=== PATIENT | male | born 1990 | race African-American/Black ===

== ENCOUNTER 2021-04-28 09:50 | Emergency (ER) | payer SELFPAY ==
[~2021-04-28] VITALS: Ht 185.4 cm; Wt 116.3 kg
[2021-04-28] MEDS ORDERED: IV NORMAL SALINE 1,000ML 1,000 ML IV ONE (10:15)
--- NOTE | 2021-04-28 10:16 | PHYS DOC ---
Past History Past Medical History: No Pertinent History Past Surgical History: No Surgical History Smoking: Non-smoker Alcohol Use: None Drug Use: None Adult General Chief Complaint Chief Complaint: ABDOMINAL PAIN HPI HPI Patient is a 30-year-old presenting for abdominal pain. This is a new issue, states he has been at baseline health without any known trauma, fever, recent travel, sick contacts or concerning p.o. ingestion when he had severe epigastric abdominal pain that awoke him from sleep at 7 AM this morning. Nothing known makes better or worse. He has been diaphoretic since onset with ongoing nausea and several episodes of nonbloody nonbilious emesis. Also endorses looser st ools than usual. Has no abdominal surgical history, denies tobacco, alcohol or illicit drug use. Has history of being incarcerated with unknown hep C/HIV status. He does not have a primary care physician and takes no medications on a daily basis Review of Systems Review of Systems Fourteen body systems of review of systems have been reviewed. See HPI for pertinent positives and negative responses, other carlos all other systems are negative, non-pertinent or non-contributory Allergies Allergies Allergies Coded Allergies Type Severity Reaction Last Updated Verified No Known Drug Allergies 04/28/21 No Physical Exam Physical Exam Constitutional: Well developed, well nourished, no acute distress, non-toxic appearance. HENT: Normocephalic, atraumatic, bilateral external ears normal, oropharynx moist, no oral exudates, nose normal. Eyes: PERRLA, EOMI, conjunctiva normal, no discharge. Neck: Normal range of motion, no tenderness, supple, no stridor. Cardiovascular: Heart rate regular, sinus rhythm, no murmurs rubs or gallops Lungs & Thorax: Bilateral breath sounds clear to auscultation Abdomen: Bowel sounds normal, soft, no tenderness, no masses, no pulsatile masses. Nonsurgical abdomen, no peritoneal signs Skin: Warm, dry, no erythema, no rash. Back: No tenderness, no CVA tenderness. Extremities: No tenderness, no cyanosis, no clubbing, ROM intact, no edema. Neurologic: Alert and oriented X 3, grossly normal motor & sensory function, no focal deficits noted. Psychologic: Affect normal, judgement normal, mood normal. Current Patient Data Vital Signs Vital Signs Date Time Temp Pulse Resp B/P (MAP) Pulse Ox O2 Delivery O2 Flow Rate FiO2 04/28/21 10:12 97.5 72 16 133/100 (111) 98 Room Air Vital Signs Date Time Temp Pulse Resp B/P (MAP) Pulse Ox O2 Delivery O2 Flow Rate FiO2 04/28/21 10:12 97.5 72 16 133/100 (111) 98 Room Air Lab Results Laboratory Tests Test 04/28/21 10:20 04/28/21 11:55 White Blood Count 9.4 x10^3/uL Red Blood Count 6.01 x10^6/uL Hemoglobin 18.1 g/dL Hematocrit 52.6 % Mean Corpuscular Volume 88 fL Mean Corpuscular Hemoglobin 30 pg Mean Corpuscular Hemoglobin Concent 35 g/dL Red Cell Distribution Width 13.9 % Platelet Count 207 x10^3/uL Neutrophils (%) (Auto) 67 % Lymphocytes (%) (Auto) 23 % Monocytes (%) (Auto) 9 % Eosinophils (%) (Auto) 1 % Basophils (%) (Auto) 1 % Neutrophils # (Auto) 6.3 x10^3uL Lymphocytes # (Auto) 2.2 x10^3/uL Monocytes # (Auto) 0.8 x10^3/uL Eosinophils # (Auto) 0.1 x10^3/uL Basophils # (Auto) 0.1 x10^3/uL Sodium Level 143 mmol/L Potassium Level 3.6 mmol/L Chloride Level 106 mmol/L Carbon Dioxide Level 26 mmol/L Anion Gap 11 Blood Urea Nitrogen 11 mg/dL Creatinine 1.3 mg/dL Estimated GFR (Cockcroft-Gault) 77.9 BUN/Creatinine Ratio 8 Glucose Level 117 mg/dL Calcium Level 11.1 mg/dL Total Bilirubin 0.5 mg/dL Aspartate Amino Transf (AST/SGOT) 30 U/L Alanine Aminotransferase (ALT/SGPT) 25 U/L Alkaline Phosphatase 90 U/L Creatine Kinase 350 U/L Troponin I Quantitative < 0.017 ng/mL Total Protein 8.7 g/dL Albumin 4.8 g/dL Albumin/Globulin Ratio 1.2 Lipase 55 U/L Ethyl Alcohol Level < 10 mg/dL Urine Collection Type Unknown Urine Color Yellow Urine Clarity Clear Urine pH 7.0 Urine Specific Marshall 1.010 Urine Protein Trace Urine Glucose (UA) Neg mg/dL Urine Ketones (Stick) 40 mg/dL Urine Blood Neg Urine Nitrite Neg Urine Bilirubin Neg Urine Urobilinogen Dipstick 0.2 mg/dL Urine Leukocyte Esterase Neg Urine RBC Rare /HPF Urine WBC 5-10 /HPF Urine Squamous Epithelial Cells Occ /LPF Urine Bacteria Few /HPF Urine Mucus Slight /LPF Urine Opiates Screen Neg Urine Methadone Screen Neg Urine Barbiturates Neg Urine Phencyclidine Screen Neg Urine Amphetamine/Methamphetamine Neg Urine Benzodiazepines Screen Neg Urine Cocaine Screen Neg Urine Cannabinoids Screen Pos Urine Ethyl Alcohol Neg Current Medications Medications (Trade) Dose Ordered Sig/Julia Route PRN Reason Start Time Stop Time Status Last Admin Dose Admin Sodium Chloride 1,000 ml @ 1,000 mls/hr 1X ONCE IV 04/28/21 10:15 04/28/21 11:14 DC 04/28/21 10:26 Fentanyl Citrate (Fentanyl 2ml Vial) 75 mcg 1X ONCE IVP 04/28/21 10:30 04/28/21 10:31 DC 04/28/21 10:27 Iohexol (Omnipaque 300 Mg/ml) 75 ml 1X ONCE IV 04/28/21 10:30 04/28/21 10:31 DC 04/28/21 10:46 Ondansetron HCl (Zofran) 4 mg 1X ONCE IVP 04/28/21 11:30 04/28/21 11:31 DC 04/28/21 11:25 Ondansetron HCl (Zofran) 4 mg STK-MED ONCE .ROUTE 04/28/21 11:23 04/28/21 11:23 DC EKG EKG EKG ordered and interpreted by myself at 1029 hrs. as sinus rhythm at 64 bpm, unremarkable intervals, no axis deviation, T wave inversion noted in lead II, III, aVF, V5 and V6, no STEMI Radiology/Procedures Radiology/Procedures INDICATION: Reason: epigastric pain / Spl. Instructions: / History: . COMPARISON: None. TECHNIQUE: Axial CT images obtained through the abdomen and pelvis with contrast. One or more of the following individualized dose reduction techniques were utilized for this examination: 1. Automated exposure control; 2. Adjustment of the mA and/or kV according to patient size; 3. Use of iterative reconstruction technique. FINDINGS: There is some linear atelectasis at lung bases. Abdominal aorta is not aneurysmal. Partial visualization of right greater than left hydrocele. Small fat-containing umbilical hernia. No intrahepatic bile duct dilation. No peripancreatic fluid collection. Spleen is unremarkable. Urinary bladder is partially distended. No significant hydronephrosis. Small fat-containing umbilical hernia. No periappendiceal inflammatory changes. Degenerative changes the spine are identified. This includes facet hypertrophy as well as disc protrusions and osteophyte formation at vertebral body endplates. Bilateral pars defects at L4. Mild wedging of the T12 vertebral body. There is some prominence the wall of a portion of the colon but it is not very distended. IMPRESSION: * No evidence of bowel obstruction or appendicitis. * The colon is not distended but there is some mild prominence of the colonic wall. Could be from lack of distention but would correlate with symptoms to ensure that this is not from early colitis. Electronically signed by: Edy Hung MD (04/28/2021 11:23 AM) [id number] Heart Score C/O Chest Pain: No HEART Score for Chest Pain: HEART Score for Chest Pain Response (Comments) Value History Slighlty/Non-Suspicious 0 ECG Normal 0 Age < 45 0 Risk Factors No Risk Factors 0 Troponin < Normal Limit 0 Total 0 Risk Factors: Risk Factors: DM, Current or recent (<one month) smoker, HTN, HLP, family history of CAD, obesity. Risk Scores: Risk Factors: DM, Current or recent (<one month) smoker, HTN, HLP, family history of CAD, obesity. Course & Med Decision Making Course & Med Decision Making Discussed with the patient all findings and diagnostic testing. I discussed most likely diagnosis of likely self-limiting gastrointestinal illness such as viral gastroenteritis. Patient responded to ER intervention that included IV fluid rehydration, pain control and antiemetic use. Reports feeling much better and requesting discharge near end of ER visit. I did disclose that this might be an acute presentation of more concerning intra-abdominal pathology and so, I stressed need for close outpatient follow-up to review today's ER visit. Strict return precautions were also discussed at length with good understanding by daniel kan. Patient voiced understanding and agreement with the plan. Patient knows to come back for repeat evaluation if concerning signs or symptoms present prior to outpatient follow-up. Hemodynamically stable, ambulatory and well-appearing at time of disposition. Dragon Disclaimer Dragon Disclaimer This electronic medical record was generated, in whole or in part, using a voice recognition dictation system. Departure Departure: Impression: Primary Impression: Nausea, vomiting, and diarrhea Disposition: HOME / SELF CARE / HOMELESS Condition: IMPROVED Referrals: PCP,MANN (PCP) Patient Instructions: Nausea and Vomiting Additional Instructions: You were seen for nausea and vomiting. You most likely have a viral illness which should resolve in the next few days to a week. Please continue to priori tize by mouth fluids and utilize prescribed antinausea medicine as needed. You should return to the ED if you develop abdominal pain, fever > 100.3, black/bloody stools, black/bloody vomiting, cannot keep water down, or any other new or concerning symptoms. Scripts Ondansetron (ONDANSETRON ODT) 4 Mg Tab.rapdis 1 TAB PO PRN Q6-8HRS for NAUSEA, #16 TAB Prov: STEPHEN NICKERSON DO 04/28/21 STEPHEN NICKERSON DO Apr 28, 2021 10:15
[2021-04-28] MEDS ORDERED: IOHEXOL 300 MG/ML 75 ML VIAL. IV ONE (10:30)
[2021-04-28 10:35] LABS: BASO # 0.1 x10^3/uL (0.0-0.2); BASO % 1 % (0-3); EOS # 0.1 x10^3/uL (0.0-0.7); EOS % 1 % (0-3); HEMATOCRIT 52.6 % (39.0-53.0); HEMOGLOBIN 18.1 g/dL (13.0-17.5); LYMPH # 2.2 x10^3/uL (1.0-4.8); LYMPH % 23 % (24-48); MEAN CORPUSCULAR HEMOGLOBIN 30 pg (25-35); MEAN CORPUSCULAR HGB CONC 35 g/dL (31-37); MEAN CORPUSCULAR VOLUME 88 fL (79-100); MONO # 0.8 x10^3/uL (0.0-1.1); MONO % 9 % (0-9); NEUT # 6.3 x10^3uL (1.8-7.7); NEUT % 67 % (31-73); PLATELET COUNT 207 x10^3/uL (140-400); RED BLOOD COUNT 6.01 x10^6/uL (4.30-5.70); RED CELL DISTRIBUTION WIDTH 13.9 % (11.5-14.5); WHITE BLOOD COUNT 9.4 x10^3/uL (4.0-11.0)
[2021-04-28 10:53] LABS: ALBUMIN 4.8 g/dL (3.4-5.0); ALBUMIN/GLOBULIN RATIO 1.2 (1.0-1.7); CALCIUM 11.1 mg/dL (8.5-10.1); CREATININE 1.3 mg/dL (0.7-1.3); GFR 77.9; POTASSIUM 3.6 mmol/L (3.5-5.1); TOTAL BILIRUBIN 0.5 mg/dL (0.2-1.0); TOTAL PROTEIN 8.7 g/dL (6.4-8.2)
[2021-04-28] MEDS ORDERED: ONDANSETRON PF 4 MG/2 ML VIAL. ONE (11:23)
--- NOTE | 2021-04-28 11:25 | RAD ---
INDICATION: Reason: epigastric pain / Spl. Instructions: / History: . COMPARISON: None. TECHNIQUE: Axial CT images obtained through the abdomen and pelvis with contrast. One or more of the following individualized dose reduction techniques were utilized for this examinat ion: 1. Automated exposure control; 2. Adjustment of the mA and/or kV according to patient size; 3 . Use of iterative reconstruction technique. FINDINGS: There is some linear atelectasis at lung bases. Abdominal aorta is not aneurysmal. Partial visualization of right greater than left hydrocele. Small fat-containing umbilical hernia. No intrahepatic bile duct dilation. No peripancreatic fluid collection. Spleen is unremarkable. Urinary bladder is partially distended. No significant hydronephrosis. Small fat-containing umbilical hernia. No periappendiceal inflammatory changes. Degenerative changes the spine are identified. This includes facet hypertrophy as well as disc protru sions and osteophyte formation at vertebral body endplates. Bilateral pars defects at L4. Mild wedgin g of the T12 vertebral body. There is some prominence the wall of a portion of the colon but it is not very distended. IMPRESSION: * No evidence of bowel obstruction or appendicitis. * The colon is not distended but there is some mild prominence of the colonic wall. Could be from la ck of distention but would correlate with symptoms to ensure that this is not from early colitis. Electronically signed by: Edy Hung MD (04/28/2021 11:23 AM) [id number]
[2021-04-28] MEDS ORDERED: ONDANSETRON PF 4 MG/2 ML VIAL. IVP ONE (11:30)
[2021-04-28 12:16] LABS: BARBITURATES NEG (NEG); BENZODIAZEPINES NEG (NEG); CANNABINOIDS POS (NEG); COCAINE NEG (NEG); METHADONE NEG (NEG); OPIATES NEG (NEG); PHENCYCLIDINE NEG (NEG)
[2021-04-28 12:17] LABS: AMPHETAMINE/METHAMPHETAMINE NEG (NEG)
[2021-04-28 12:26] LABS: BILIRUBIN,URINE NEG (NEG); CLARITY,URINE CLEAR; COLOR,URINE YELLOW; GLUCOSE,URINE NEG (NEG); NITRITE,URINE NEG (NEG); UROBILINOGEN,URINE 0.2 mg/dL (0.2 mg/dL)
[2021-04-28 12:30] LABS: RBC,URINE RARE /HPF (0-2)
[2021-04-28 12:31] LABS: BACTERIA,URINE FEW /HPF (0-FEW); SQUAMOUS EPITHELIAL CELL,UR OCC /LPF
[2021-04-28] MEDS ORDERED: ONDA4TAB12 PO (12:40)
[2021-04-28 12:48] VITALS: BP 134/78
--- NOTE | 2021-04-28 23:33 | EKG ---
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
== END 2021-04-28 12:49 | disposition home or self-care (01) ==
LOC: ER 09:50
DX: R11.2 Nausea with vomiting, unspecified (principal); R19.7 Diarrhea, unspecified; R10.13 Epigastric pain
CPT/HCPCS: 36415; 74177; 80053; 80307; 81001; 82550; 83690; 84484; 85025; 87086; 93005; 96361; 96374; 96375; 99285; G0480; J2405; J3010; J7030; Q9967

== ENCOUNTER 2021-04-30 14:07 | Emergency (ER) | payer SELFPAY ==
[~2021-04-30] VITALS: Ht 185.4 cm; Wt 116.3 kg
[~2021-04-30 14:07] MED LIST: ONDA4TAB12 PO
[2021-04-30] MEDS ORDERED: diphenhydrAMINE 50 MG/ML VIAL IM ONE (14:30)
[2021-04-30] MEDS ORDERED: HALOPERIDOL LACT 5 MG/ML VIAL. IM ONE (14:30)
[2021-04-30 15:30] VITALS: BP 156/70
--- NOTE | 2021-04-30 15:42 | PHYS DOC ---
Past History Past Medical History: No Pertinent History Past Surgical History: No Surgical History Smoking: Non-smoker Alcohol Use: None Drug Use: Marijuana Adult General Chief Complaint Chief Complaint: NAUSEA/VOMITING/DIARRHEA HPI HPI Patient is a 30-year-old male presenting for nausea and vomit. He is seen 48 hours ago at our facility for similar symptoms and thoroughly evaluated by myself. Patient symptoms responded with IV fluid and IV antiemetics. His laboratory analysis and CT abdomen pelvis were nonconcerning for any emergent or surgical issues. Patient reports he felt better day of discharge and also was asymptomatic yesterday. Admits to smoking weed yesterday evening and waking up early hours of this morning with generalized nausea, abdominal cramping and has had several episodes of cyclic vomiting. Patient has tried taking prescribed Zofran Review of Systems Review of Systems Fourteen body systems of review of systems have been reviewed. See HPI for pertinent positives and negative responses, other carlos all other systems are negative, non-pertinent or non-contributory Current Medications Current Medications Current Medications Medications (Trade) Dose Ordered Sig/Julia Start Time Stop Time Status Last Admin Dose Admin Diphenhydramine HCl (Benadryl) 25 mg 1X ONCE 04/30/21 14:30 04/30/21 14:46 DC Haloperidol Lactate (Haldol) 5 mg 1X ONCE 04/30/21 14:30 04/30/21 14:46 DC 04/30/21 14:27 5 MG Allergies Allergies Allergies Coded Allergies Type Severity Reaction Last Updated Verified No Known Drug Allergies 04/28/21 No Physical Exam Physical Exam Constitutional: Well developed, well nourished, no acute distress but appears uncomfortable, non-toxic appearance. HENT: Normocephalic, atraumatic, bilateral external ears normal, oropharynx moist, no oral exudates, nose normal. Eyes: PERRLA, EOMI, conjunctiva normal, no discharge. Neck: Normal range of motion, no tenderness, supple, no stridor. Cardiovascular: Heart rate regular, sinus rhythm, no murmurs rubs or gallops Lungs & Thorax: Bilateral breath sounds clear to auscultation Abdomen: Bowel sounds normal, soft, generalized abdominal tenderness without guarding or rebound, no masses, no pulsatile masses. Nonsurgical abdomen, no peritoneal signs Skin: Warm, dry, no erythema, no rash. Back: No tenderness, no CVA tenderness. Extremities: No tenderness, no cyanosis, no clubbing, ROM intact, no edema. Neurologic: Alert and oriented X 3, grossly normal motor & sensory function, no focal deficits noted. Psychologic: Affect normal, judgement normal, mood normal. Current Patient Data Vital Signs Vital Signs Date Time Temp Pulse Resp B/P (MAP) Pulse Ox O2 Delivery O2 Flow Rate FiO2 04/30/21 14:10 97.8 80 18 160/84 (109) 99 Room Air EKG EKG [] Radiology/Procedures Radiology/Procedures [] Heart Score C/O Chest Pain: No Risk Factors: Risk Factors: DM, Current or recent (<one month) smoker, HTN, HLP, family history of CAD, obesity. Risk Scores: Risk Factors: DM, Current or recent (<one month) smoker, HTN, HLP, family history of CAD, obesity. Course & Med Decision Making Course & Med Decision Making ABCs unremarkable. I disclosed entirety of ER findings and discussed most likely diagnosis of self-limiting gastrointestinal illness such as viral gastroenteritis versus cyclic vomiting from ongoing cannabis abuse. Patient refused any IV stick but accepted IM Haldol which improved his symptoms. Patient monitored while in ER in near end of visit stated he felt good enough to go home. I reiterated importance of supportive care and avoiding marijuana to avoid flareups in his condition. I stressed need for close outpatient follow-up to review today's ER visit. Strict return precautions were also discussed at length with good understanding by patient. Patient voiced understanding and agreement with the plan. Patient knows to come back for repeat evaluation if concerning signs or symptoms present prior to outpatient follow-up. Hemodynamically stable, ambulatory and well-appearing at time of disposition. Dragon Disclaimer Dragon Disclaimer This electronic medical record was generated, in whole or in part, using a voice recognition dictation system. Departure Departure: Impression: Primary Impression: Nausea and vomiting Additional Impression: Unspecified abdominal pain Disposition: HOME / SELF CARE / HOMELESS Condition: IMPROVED Referrals: PCPMANN (PCP) Patient Instructions: Nausea and Vomiting Additional Instructions: You have been evaluated in the Emergency Department today for abdominal pain. Your evaluation was not suggestive of any emergent condition requiring medical intervention at this time. However, some abdominal problems make take more time to appear. Therefore, it is important for you to watch for any new symptoms or worsening of your current condition. Please follow up with your primary care physician as needed. If you do not have a primary doctor, you can call your insurance company to find one. If you do not have insurance, you can go to the finance/registration department for more assistance. Return to the Emergency Department if you experience worsening pain, persistent fevers greater than 100.4, recurrent vomiting, blood in vomit, blood in stool, dark tarry stool, chest pain, difficulty breathing, or any other concerning symptoms. Problem Qualifiers STEPHEN NICKERSON DO Apr 30, 2021 15:42
== END 2021-04-30 15:53 | disposition home or self-care (01) ==
LOC: ER 14:07
DX: R10.84 Generalized abdominal pain (principal); R11.2 Nausea with vomiting, unspecified; F12.10 Cannabis abuse, uncomplicated
CPT/HCPCS: 96372; 99283; J1630